=== PATIENT | male | born 1960 | race Asian ===

== ENCOUNTER 2016-09-11 23:19 | Emergency (ER) | payer MEDICAID, OTHER ==
[2016-09-11] MEDS ORDERED: TDAP ADULT 0.5 ML INJ (BOOSTRIX) IM ONE (23:27)
[2016-09-11 23:28] VITALS: BP 152/96; PULSE 77; RESP 16; TEMP 98.6; O2SAT 97
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
[2016-09-11] MEDS ORDERED: CLINDAMYCIN 150MG PREPACK#6 BTL TAKEHOME ONE ×2 (23:45→23:47)
[2016-09-11] MEDS ORDERED: SULFAMET/TMP DS PREPACK#2 BTL TAKEHOME ONE ×2 (23:46→23:48)
== END 2016-09-12 00:06 | disposition home or self-care (01) ==
LOC: CED 23:19
PROC: 0J9K0ZZ Drainage of Left Hand Subcutaneous Tissue and Fascia, Open Approach (ICD-10-PCS; principal; 2016-09-11)
DX: S61.251A Open bite of left index finger without damage to nail, initial encounter (principal); L03.012 Cellulitis of left finger; Z23 Encounter for immunization; W50.3XXA Accidental bite by another person, initial encounter

== ENCOUNTER 2016-09-12 16:16 | Emergency (ER) | payer MEDICAID ==
--- NOTE | 2016-09-12 16:22 | EDPHY ---
H & P Stated Complaint: here last pm - states pain worse today HPI/ROS: HPI CHIEF COMPLAINT: Left index finger swelling and pain HISTORY OF PRESENT ILLNESS: This patient very pleasant 56-year-old male no significant medical history however does have pre diabetes, presents to the emergency room with worsening left index finger swelling and pain. Patient tells me that was seen here late last night and was discharged around 1:00 a.m. got home he has been taking his antibiotics of Bactrim and Keflex however he has not been doing warm soaks. He worked all day today. Presents back to the emergency room for worsening throbbing pain at the distal aspect of his left index finger. No fever. Past Medical History: No significant medical history except for pre diabetes Past Surgical History: No significant surgical history Social History: Denies daily use of drugs alcohol tobacco products Family History: Noncontributory ROS REVIEW OF SYSTEMS: A comprehensive 10 point review of systems is otherwise negative aside from elements mentioned in the history of present illness. Exam Constitutional triage nursing summary reviewed, vital signs reviewed, awake/ alert. Eyes normal conjunctivae and sclera, EOMI, PERRLA. HENT normal inspection, atraumatic, moist mucus membranes, no epistaxis, neck supple/ no meningismus, no raccoon eyes. Respiratory clear to auscultation bilaterally, normal breath sounds, no respiratory distress, no wheezing. Cardiovascular rate normal, regular rhythm, no murmur, no edema, distal pulses normal. Gastrointestinal soft, non-tender, no rebound, no guarding, normal bowel sounds, no distension, no pulsatile mass. Genitourinary no CVA tenderness. Musculoskeletal left index finger: Distal aspect is swollen, painful, erythematous, no serena pus, appears to be some white discoloration at the nail bed, there is no evidence of flexor tenosynovitis, or sausage digit, he is neurovascular intact with good sensation distally, no midline vertebral tenderness, full range of motion, no calf swelling, no tenderness of extremities , no meningismus, good pulses, neurovascularly intact. Skin pink, warm, & dry, no rash, skin atraumatic. Neurologic awake, alert and oriented x 3, AAOx3, moves all 4 extremities equally, motor intact, sensory intact, CN II-XII intact, normal cerebellar, normal vision, normal speech. Psychiatric normal mood/affect. Heme/Lymph/Immune no lymphadenopathy. Differential Diagnosis: Includes but is not limited to in a particular order, paronychia, felon, fracture, finger infection Medical Decision Making: Patient is taking clindamycin and Bactrim which I encouraged him to continue, however has not been doing warm soaks of like him to do warm soaks this evening, also place him in a limited form splint for comfort, [place] for pain control and ibuprofen. Also he will need to see Hand surgery tomorrow morning. I spoke with Dr. Murcia at 4:40 p.m. with Hand surgery he will be glad to see this patient 1st thing in the morning. I do not feel that patient needs emergent surgery at this time is not septic does not have a fever there is no streaking up his hand he has full range of motion, is neurovascularly intact, there is no serena pus on exam. Recommend pain control with [place] and ibuprofen, warm compresses, continue Bactrim and clindamycin, see Hand surgery tomorrow morning. I did update this patient understands the plan. Specifically understands follow-up with Hand surgery tomorrow morning. Call for appointment morning. Of note I do not feel that there is anything that needs to be drained here in the emergency room at this time. It is possible there is a deep infection inside the finger that may need drainage tomorrow morning. No superficial abscess that I can see specifically no significant paronychia that I can drain or felon. Possible deeper space infection. Need hand Surgery Evaluation and treatment. Patient understands. Source: Patient - Medical/Surgical History Hx Asthma: No Hx Chronic Respiratory Disease: No Hx Diabetes: Yes Hx Cardiac Disease: No Hx Renal Disease: No Hx Cirrhosis: No Hx Alcoholism: No Hx HIV/AIDS: No Hx Splenectomy or Spleen Trauma: No Other PMH: pre diabetic - Social History Smoking Status: Never smoked Constitutional: Initial Vital Signs Temperature (C) 36.6 C 09/12/16 16:19 Heart Rate 82 09/12/16 16:19 Respiratory Rate 18 09/12/16 16:19 Blood Pressure 129/70 H 09/12/16 16:19 O2 Sat (%) 97 09/12/16 16:19 O2 Delivery Mode Room Air Allergies/Adverse Reactions: Penicillins Allergy (Verified 09/11/16 23:26) Home Medications: Medication Instructions Recorded Clindamycin HCl [Clindamycin] 300 mg PO TID #30 cap 09/11/16 Sulfamethox/Tmp 800/160 mg 1 tab PO BID #14 tab 09/11/16 [Bactrim Ds] Hydrocodone/APAP 5/325 [[place] 1 - 2 tab PO Q4H PRN #10 tab 09/12/16 5/325] Ibuprofen [Motrin (*)] 800 mg PO Q6-8PRN #7 tab 09/12/16 Departure - Departure Disposition: Home, Routine, Self-Care Clinical Impression: Finger infection Condition: Good Instructions: Paronychia (ED) Additional Instructions: 1. Please do warm soaks 5 times a day for 20 minutes. 2. Take pain medicine as prescribed. 3. Continue her antibiotics. 4. Please call Hand surgery morning thing 8:30 a.m. to make appoint. He should be seen there this morning. Referrals: NONE *PRIMARY CARE P,. [Primary Care Provider] - As per Instructions Davion Murcia MD [Medical Doctor] - As per Instructions Prescriptions: Hydrocodone/APAP 5/325 [[place] 5/325] 1 - 2 tab PO Q4H PRN #10 tab PRN Reason: Pain, Moderate Ibuprofen [Motrin (*)] 800 mg PO Q6-8PRN #7 tab
[2016-09-12] MEDS ORDERED: IBUPROFEN 800 MG TAB PO ONE (16:29)
[2016-09-12] MEDS ORDERED: IBUPROFEN 600 MG TAB PO ONE (16:36)
[2016-09-12] MEDS ORDERED: IBUPROFEN 200 MG TAB PO ONE (16:36)
[2016-09-12 16:59] VITALS: PULSE 78; TEMP 98.1; O2SAT 95
[2016-09-12] MEDS ORDERED: BACITRACIN OINTMENT 1 PACKET TP ONE (17:04)
[2016-09-12 17:15] VITALS: BP 137/71; RESP 18
== END 2016-09-12 17:13 | disposition home or self-care (01) ==
LOC: CED 16:16
DX: L08.9 Local infection of the skin and subcutaneous tissue, unspecified (principal)
CPT/HCPCS: 73140-PO